=== PATIENT | male | born 1970 | race Caucasian/White ===

== ENCOUNTER 2016-10-22 15:31 | Emergency (ER) | payer OTHER ==
[2016-10-22] MEDS ORDERED: NITROGLYCERIN SL 0.4 MG TABLET SL STA (16:21)
[2016-10-22] MEDS ORDERED: KETOROLAC 60 MG/2 ML VIAL IVP STA (16:23)
[2016-10-22] MEDS ORDERED: NITROGLYCERIN SL 0.4 MG TABLET SL ONE (16:24)
[2016-10-22] MEDS ORDERED: KETOROLAC 30 MG/ML VIAL ONE (16:28)
== END 2016-10-22 17:45 | disposition home or self-care (01) ==
DX: G44.89 Other headache syndrome (principal); R07.2 Precordial pain; I51.9 Heart disease, unspecified

== ENCOUNTER 2022-05-02 15:13 | Outpatient (CLI) | payer OTHER | END 2022-05-02 15:14 | disposition critical access hospital (66) | LOC: EMS 15:13 | DX: R56.9 Unspecified convulsions (principal) | CPT/HCPCS: A0425; A0429 ==

== ENCOUNTER 2022-05-02 15:34 | Emergency (ER) | payer OTHER ==
[2022-05-02] MEDS ORDERED: MORPHINE 2 MG/ML CARPUJECT IVP STA ×2 (15:39→22:50)
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
[2022-05-02 15:50] LABS: BASOPHILS % (AUTO) 0.5 %; EOSINOPHILS # (AUTO) 0.1 10^3/uL (0.0-0.7); EOSINOPHILS % (AUTO) 2.4 %; HCT - HEMATOCRIT 46.4 % (42.0-52.0); LYMPHOCYTES # (AUTO) 1.2 10^3/uL (1.5-3.5); LYMPHOCYTES % (AUTO) 21.3 %; MEAN CORPUSCULAR HEMOGLOBIN 30.1 pg (27.0-31.0); MEAN CORPUSCULAR HGB CONC 34.5 g/dL (32.0-36.0); MEAN CORPUSCULAR VOLUME 87.4 fL (80.0-94.0); MEAN PLATELET VOLUME 9.4 fL (7.4-11.4); MONOCYTES # (AUTO) 0.7 10^3/uL (0.0-1.0); MONOCYTES % (AUTO) 11.3 %; NEUTROPHILS # (AUTO) 3.7 10^3/uL (1.5-6.6); PLT - PLATELET COUNT 196 10^3/uL (130-450); RED BLOOD COUNT 5.31 10^6/uL (4.70-6.10); RED CELL DISTRIBUTION WIDTH 15.2 % (12.0-15.0); WHITE BLOOD COUNT 5.7 x10^3/uL (4.8-10.8)
--- OUTSIDE RECORDS SUMMARY | 2022-05-02 15:57 | EXTERNAL MEDICAL SUMMARY RPT | Continuity of Care Document ---
:1970 Author Organization [facility] Address [address] [place] [address] Phone Allergies and Intolerances date description facility type (no date) NO KNOWN ALLERGIES CORHIO (unknown) Encounters No information. Functional Status No information. Immunizations No information. Medications No information. Problems No information. Procedures No information. Results/Labs No information. Social History No information. Vital Signs No information.
[2022-05-02 16:02] LABS: ALBUMIN 4.5 g/dL (3.2-5.5); ALBUMIN/GLOBULIN RATIO 1.3 (1.0-2.2); BILIRUBIN,TOTAL 0.7 mg/dL (0.2-1.0); CALCIUM 9.9 mg/dL (8.5-10.3); POTASSIUM 4.3 mmol/L (3.5-5.0); TOTAL PROTEIN 7.9 g/dL (6.7-8.2)
--- NOTE | 2022-05-02 16:17 | CT Report ---
PROCEDURE: HEAD WO INDICATIONS: headache, seizure TECHNIQUE: Noncontrast 4.5 mm thick angled axial sections acquired from the foramen magnum to the vertex. For r adiation dose reduction, the following was used: automated exposure control, adjustment of mA and/or kV according to patient size. COMPARISON: None. FINDINGS: Image quality: Excellent. CSF spaces: Basal cisterns are patent. No extra-axial fluid collections. Ventricles are normal in size and shape. Brain: No midline shift. No intracranial masses or hemorrhage. Lang-white matter interface is norm al. Skull and face: Calvarium and visualized facial bones are intact, without suspicious lesions. Sinuses: Visualized sinuses and mastoids are clear. IMPRESSION: 1. No acute intracranial process. Reviewed by: Vaishnavi Fleming MD on 05/02/2022 4:16 PM PDT Approved by: Vaishnavi Fleming MD on 05/02/2022 4:16 PM PDT Station ID: [id number]
[2022-05-02] MEDS ORDERED: SODIUM CHLORIDE 0.9% 1,000 ML IV STA (16:53)
[2022-05-02] MEDS ORDERED: KETOROLAC 15 MG/ML VIAL IVP STA (16:53)
--- NOTE | 2022-05-02 17:45 | CT Report ---
PROCEDURE: THORACIC SPINE WO INDICATIONS: back injury TECHNIQUE: Noncontrast 3 mm thick sections acquired through the region of interest in the thoracic spine. Sagit leland and coronal reformats were then constructed. For radiation dose reduction, the following was used : automated exposure control, adjustment of mA and/or kV according to patient size. COMPARISON: None. FINDINGS: Image quality: Excellent. Bones: Postsurgical changes are seen from posterior fixation of the upper thoracic spine extending f rom T2 through T6. There is anterior wedging deformity of the T4 vertebral body with moderate loss of vertebral body height and a small displaced anterior osseous fragment. These are most likely chronic . There is also mild fracture deformity of the anterior aspect of the T3 and T5 vertebral bodies. There is a minimally displaced fracture of the manubrium. Chronic healed fractures of the posterior t hird ribs bilaterally and likely the posterior right fourth rib. The medial portions of the scapulas are intact bilaterally. Central spinal canal is of normal overall caliber. Soft tissues: No paravertebral masses or hematomas. Mild dependent atelectasis in the lung bases. S mall hiatal hernia. IMPRESSION: 1.Postoperative changes from posterior fixation and T2-T6, presumably for fixation of prior T3-T5 katie tebral body fractures. Recommend correlation with any available prior studies to exclude the possibil ity of a superimposed new vertebral body injury. Metallic hardware is intact. The remainder of the th oracic spine is intact. 2.Chronic healed fractures of the posterior third ribs bilaterally and likely the right posterior fou rth rib. No acute rib fracture identified. 3.Mild chronic appearing fracture deformity of the manubrium. Reviewed by: Michael Calero MD on 05/02/2022 4:43 PM NELIDA Approved by: Michael Calero MD on 05/02/2022 4:43 PM AKNEO Station ID: [id number]
[2022-05-02] MEDS ORDERED: levETIRAcetam INJ 1,000 MG in SODIUM CHLORIDE 0.9% 100ML 100 ML IV STA (17:50)
[2022-05-02] MEDS ORDERED: LORazepam 2 MG/ML VIAL IVP STA ×2 (17:50→20:04)
[2022-05-02] MEDS ORDERED: LORazepam 2 MG/ML VIAL ONE ×2 (18:00→20:54)
--- NOTE | 2022-05-02 19:15 | CT Report ---
PROCEDURE: CT angiogram brain with contrast INDICATIONS: headache sz CONTRAST: IV CONTRAST: Optiray 320 ml: 100 PO CONTRAST: *NO PO CONTRAST TECHNIQUE: After the administration of intravenous contrast, 1 mm thick sections acquired through the [place] of [place]. Postcontrast 4.5 mm thick sections then re-acquired from the foramen magnum to the vertex. For radiation dose reduction, the following was used: automated exposure control, adjustment of mA and/or kV according to patient size. COMPARISON: None FINDINGS: Image quality: Excellent. Anterior circulation: Intracranial internal carotid arteries are normal in size and flow. The flow within the paired anterior cerebral arteries is normal and symmetric. The flow within the middle cer ebral arteries is normal and symmetric. The anterior communicating artery is seen. No aneurysms are seen. Posterior circulation: Visualized portions of the vertebral arteries demonstrate normal caliber, and join to form a normal appearing basilar artery. Flow within the posterior cerebral arteries is norm al and symmetric. No aneurysms are seen. Distal right artery stenosis and noted CSF spaces: Ventricles are normal in size and shape. Basal cisterns are patent. No extra-axial flu id collections. Brain: No midline shift. No intracranial bleeds or masses. Lang-white matter interface appears int act. Skull and face: Calvarium and facial bones appear intact, without suspicious lesions. Sinuses: Visualized sinuses and mastoids are clear. IMPRESSION: Distal right vertebral artery stenosis. Otherwise unremarkable cranial CTA without large vessel occlu shyla, aneurysm or vascular malformation Reviewed by: Cash Carrasco MD on 05/02/2022 6:13 PM NELIDA Approved by: Cash Carrasco MD on 05/02/2022 6:13 PM AKDT Station ID: [id number]
--- NOTE | 2022-05-02 19:17 | CT Report ---
PROCEDURE: CT angiogram neck with contrast INDICATIONS: headache sz CONTRAST: IV CONTRAST: Optiray 320 ml: 100 PO CONTRAST: *NO PO CONTRAST TECHNIQUE: After the administration of intravenous contrast, 1.5 mm axial sections acquired from the aortic arch to the [place] of [place]io. Coronal 3-D maximum intensity projection (MIP) and/or volume rendering ref ormats were then performed. For radiation dose reduction, the following was used: automated exposur e control, adjustment of mA and/or kV according to patient size. COMPARISON: None. FINDINGS: Image quality: Upper thoracic spine posterior maty and screw instrumentation limits assessment of the left common carotid origin and origins of the vertebral arteries Carotid system: The great vessels demonstrate a conventional anatomy as they arise from the aortic a rch. The origins of the common carotid arteries appear patent. The common carotid arteries demonstr ate normal calibers and courses. The bifurcation regions appear normal bilaterally. The internal ca rotid arteries demonstrate normal caliber and course. Posterior circulation: The origins of the vertebral arteries appear patent. The more superior porti ons of the vertebral arteries demonstrate normal course and caliber. They join to form a normal appe aring basilar artery. Soft tissues: Visualized neck soft tissues demonstrate no suspicious abnormalities. The thyroid is normal in size and there are no incidental findings. Bones: No suspicious bony lesions. Visualized cervical spine appears normally aligned. IMPRESSION: Trace atherosclerotic plaque noted in both proximal internal carotid arteries without stenosis. The estimate of stenosis included in the report of the imaging study was calculated using the NASCET method Reviewed by: Cash Carrasco MD on 05/02/2022 6:15 PM NELIDA Approved by: Cash Carrasco MD on 05/02/2022 6:15 PM AKNEO Station ID: [id number]
--- NOTE | 2022-05-02 19:31 | CT Report ---
PROCEDURE: Abdomen/Pelvis W INDICATIONS: chest/abd pain CONTRAST: IV CONTRAST: Optiray 320 ml: 100 PO CONTRAST: *NO PO CONTRAST TECHNIQUE: After the administration of weight appropriate dose of intravenous contrast, 5 mm thick sections acqu ired from the diaphragms to the symphysis. 5 mm thick coronal and sagittal reformats were acquired. For radiation dose reduction, the following was used: automated exposure control, adjustment of mA and/or kV according to patient size. COMPARISON: None. FINDINGS: Image quality: Excellent. ABDOMEN: Lung bases: Bibasilar atelectasis. Heart size is normal. Moderate hiatal hernia. Solid organs: Liver and spleen are normal in size and enhancement. No evidence for acute traumatic i njury. Gallbladder is unremarkable. Biliary system is non dilated. Pancreas enhances normally. Homo geneous pancreatic enhancement. No peripancreatic inflammation. No adrenal nodules. Kidneys demonstr ate normal size and enhancement, without hydronephrosis. No evidence for acute traumatic injury. Peritoneum and bowel: Bowel loops demonstrate normal wall thickness and caliber. No free fluid or a ir. Nodes and vessels: No retroperitoneal or mesenteric adenopathy by size criteria. Aorta and inferior vena cava are normal in size. Scattered atherosclerotic calcifications. Miscellaneous: Small fat-containing umbilical hernia without acute inflammation. PELVIS: Genitourinary: Bladder wall thickness is normal. Miscellaneous: No inguinal hernias or adenopathy. Bones: No suspicious bony lesions. No acute vertebral body compression fractures. IMPRESSION: CT abdomen and pelvis without acute abnormalities or acute traumatic injury to the solid or hollow organs. No acute fractures seen. Moderate size hiatal hernia. Atherosclerosis. Reviewed by: Osmar Lala MD on 05/02/2022 7:29 PM PDT Approved by: Osmar Lala MD on 05/02/2022 7:29 PM PDT Station ID: [id number]
--- NOTE | 2022-05-02 19:38 | CT Report ---
PROCEDURE: CHEST W INDICATIONS: chest pain CONTRAST: IV CONTRAST: Optiray 320 ml: 100 PO CONTRAST: *NO PO CONTRAST TECHNIQUE: After the administration of intravenous contrast, 1 mm axial images were acquired from the pulmonary apices through the posterior costophrenic angles. Axial 5 mm soft tissue kernel reconstructions were performed as well as 8 mm axial MIP and coronal and sagittal 5 mm reformations. For radiation dose reduction, the following was used: automated exposure control, adjustment of mA and/or kV according to patient size. COMPARISON: None. FINDINGS: Image quality: Diagnostic. Lungs and pleura: No acute air space opacities. Bibasilar atelectasis. No pleural effusions or pneu mothorax. Central and peripheral airways are patent and normal in caliber. Mediastinum: Heart size is normal. No pericardial effusion. No mediastinal or hilar adenopathy by size criteria. Thoracic aorta and central pulmonary arteries are normal in size. Esophagus is emma l in caliber. Moderate-sized hiatal hernia. Bones and chest wall: Status post posterior thoracic spinal fusion from T2 through T6 with normal bon y alignment. However, there is an acute appearing anterior, superior endplate compression fracture in volving the T4 vertebral body with anterior displacement of the fracture fragments and associated mil d paravertebral soft tissue edema. No other acute fractures seen. No axillary or supraclavicular michelle opathy by size criteria. Thyroid gland is unremarkable.. Abdomen: Visualized upper abdominal solid organs appear normal. Upper abdominal bowel loops are nor mal in caliber. IMPRESSION: Status post posterior spinal fusion of T2-T6 with relative acute appearing anterior, superior henrique shyla fracture of the T4 vertebral body. The anterior fracture fragments of the anterior superior endp late are displaced anteriorly. There is mild paravertebral soft tissue edema which may be accentuated by combination of streak artifact from adjacent fusion hardware and motion artifact. Moderate size hiatal hernia. Findings were discussed with Dr. Espinosa at 1935 hours. There is question regarding the acuity of the T4 vertebral fracture given relatively recent history of spinal fusion secondary to thoracic spinal t rauma at this site a few months prior. CLINICAL RECOMMENDATION STATEMENTS: In patients <35 years with an ITN detected on CT, MRI, or extrathyroidal ultrasound, the Committee re commends further evaluation with dedicated thyroid ultrasound if the nodule is "e1 cm and has no susp icious imaging features, and if the patient has normal life expectancy. In patients "e35 years with an ITN detected on CT, MRI, or extrathyroidal ultrasound, the Committee r ecommends further evaluation with dedicated thyroid ultrasound if the nodule is "e1.5 cm and has no s uspicious imaging features, and if the patient has normal life expectancy. (ACR, 2014) Reviewed by: Osmar Lala MD on 05/02/2022 7:37 PM PDT Approved by: Osmar Lala MD on 05/02/2022 7:37 PM PDT Station ID: [id number]
[2022-05-02] MEDS ORDERED: ASPIRIN CHEW 81 MG TABLET PO STA (19:41)
[2022-05-02 20:59] LABS: B. PARAPERTUSSIS- RESP PCR PAN NOT DETECTED; B. PERTUSSIS- RESP PCR PANEL NOT DETECTED; C. PNEUMONIAE- RESP PCR PANEL NOT DETECTED; CORONAVIRUS 229E-RESP PCR NOT DETECTED; CORONAVIRUS HKU1-RESP PCR NOT DETECTED; CORONAVIRUS NL63-RESP PCR NOT DETECTED; CORONAVIRUS OC43-RESP PCR NOT DETECTED; HUMAN METAPNEUMOVIRUS NOT DETECTED; INFLUENZA A- RESP PCR PANEL NOT DETECTED; INFLUENZA B - RESP PCR PANEL NOT DETECTED; M. PNEUMONIAE- RESP PCR PANEL NOT DETECTED; PARAINFLUENZA VIRUS 1 NOT DETECTED; PARAINFLUENZA VIRUS 2 NOT DETECTED; PARAINFLUENZA VIRUS 3 NOT DETECTED; PARAINFLUENZA VIRUS 4 NOT DETECTED; RHINOVIRUS/ENTEROVIRUS NOT DETECTED; RSV- RESP PCR PANEL NOT DETECTED; SARS-CoV-2 -RESP PCR PANEL NOT DETECTED
[2022-05-03 05:22] LABS: BASOPHILS % (AUTO) 0.3 %; EOSINOPHILS # (AUTO) 0.1 10^3/uL (0.0-0.7); EOSINOPHILS % (AUTO) 2.1 %; HCT - HEMATOCRIT 44.1 % (42.0-52.0); HGB - HEMOGLOBIN 15.1 g/dL (14.0-18.0); LYMPHOCYTES # (AUTO) 1.7 10^3/uL (1.5-3.5); LYMPHOCYTES % (AUTO) 25.2 %; MEAN CORPUSCULAR HEMOGLOBIN 29.9 pg (27.0-31.0); MEAN CORPUSCULAR HGB CONC 34.2 g/dL (32.0-36.0); MEAN CORPUSCULAR VOLUME 87.3 fL (80.0-94.0); MEAN PLATELET VOLUME 9.4 fL (7.4-11.4); MONOCYTES % (AUTO) 14.9 %; NEUTROPHILS # (AUTO) 3.8 10^3/uL (1.5-6.6); NEUTROPHILS % (AUTO) 57.2 %; PLT - PLATELET COUNT 181 10^3/uL (130-450); RED BLOOD COUNT 5.05 10^6/uL (4.70-6.10); RED CELL DISTRIBUTION WIDTH 15.4 % (12.0-15.0); WHITE BLOOD COUNT 6.6 x10^3/uL (4.8-10.8)
[2022-05-03 05:30] LABS: CALCIUM 9.6 mg/dL (8.5-10.3); CREATININE 0.9 mg/dL (0.6-1.2); POTASSIUM 4.1 mmol/L (3.5-5.0)
[2022-05-03] MEDS ORDERED: KETOROLAC 15 MG/ML VIAL IVP STA (09:43)
[2022-05-03] MEDS ORDERED: HYDROmorphone 0.5 MG/0.5 ML SYRINGE IVP STA (09:43)
--- NOTE | 2022-05-03 09:48 | ED Physician Documentation ---
ED Addendum - Addendum Addendum: 05/03/22 09:46The patient is awake and conversant. He was starting to have a bit of a headache just a little bit ago. These at times have preceded the seizure in the last day. He would get headaches occasionally in the past. At this point it seemed mild and we can give him some Toradol and pain medicine. In addition the nursing staff did check the patient over that there were no unusual pressure areas, his genitalia were not impinged and his catheter is free-flowing. His extremities seem and rested comfortable position. No obvious stimulus in that regard. We can give some dose of Keppra as well that was just started yesterday and I presume would be continued at 500 mg twice daily. We had not heard any news on transfers from to other facilities as yet this morning but hopefully there will be discharges and other facilities. We can also reassess through the day if no transfers are available, what the goal might be for outpatient treatment. 05/03/22 09:47
[2022-05-03] MEDS ORDERED: levETIRAcetam INJ 500 MG in SODIUM CHLORIDE 0.9% 100ML 100 ML IV SCH (10:00)
[2022-05-03] MEDS ORDERED: ACETAMINOPHEN 325 MG TABLET PO STA (16:57)
[2022-05-03 18:45] LABS: BILIRUBIN,URINE NEGATIVE (NEGATIVE); GLUCOSE, URINE (UA) NEGATIVE (NEGATIVE); KETONES,URINE (UA) NEGATIVE (NEGATIVE); LEUKOCYTE ESTERASE, URINE TRACE (NEGATIVE); NITRITE,URINE NEGATIVE (NEGATIVE); OCCULT BLOOD,URINE SMALL (NEGATIVE); PROTEIN,URINE NEGATIVE (NEGATIVE); UROBILINOGEN,URINE 0.2 (NORMAL) E.U./dL (NORMAL)
[2022-05-03 18:49] LABS: CLARITY,URINE HAZY (CLEAR)
[2022-05-03 19:00] LABS: BACTERIA,URINE Moderate /HPF (None Seen); RBC,URINE 0-5 /HPF (0-5); SQUAMOUS EPITHELIAL CELL,UR NONE SEEN (<= Few)
[2022-05-03] MEDS ORDERED: NITROFURANTOIN MACRO 100 MG CAPSULE PO SCH (21:00)
[2022-05-03] MEDS ORDERED: levETIRAcetam 250 MG TABLET PO SCH (21:00)
--- NOTE | 2022-05-04 00:07 | ED Physician Documentation ---
ED Addendum - Addendum Addendum: 05/04/22 00:05 Asked to discuss case with the neurologist at [facility] in [place]. She states as he has not had any further seizures in 24 hours that he would not need admission for the seizures as he needs an outpatient EEG which at this point would not change their management which would be to continue the Keppra 500 mg twice daily. Transfer center will reach out to bonded strand operator to discuss abnormal troponins and transfer for cardiology evaluation. 05/04/22 00:[address] Rosen, bonded strand operator at [facility] in [place].He agrees to see the patient in transfer and feels that it is reasonable that we have not started heparin at this time As the troponin is now downtrending and he has not had further episodes of pain. Request that we speak to the hospitalist service for admission. Transfer center to page the hospitalist. 05/04/22 01:[address] Espinoza, hospitalist at [facility] who agrees to accept the patient in transfer.
[2022-05-04 02:55] VITALS: BP 141/96
== END 2022-05-04 02:55 | disposition short-term general hospital (02) ==
LOC: EDUNIT# → ED 15:34
DX: G40.901 Epilepsy, unspecified, not intractable, with status epilepticus (principal); R77.8 Other specified abnormalities of plasma proteins
CPT/HCPCS: 36415; 51702; 70450; 70496; 70498; 71260; 72128; 74177; 80048; 80053; 81001; 84146; 84484; 85025; 87077; 87086; 87181; 87633; 93005; 96361; 96365; 96366; 96375; 96376; 99285; 99291; A9270; J1170; J2060; Q9967; 81003

== ENCOUNTER 2024-02-15 08:00 | Outpatient (CLI) | payer MEDICAID, OTHER ==
[2024-02-15 18:44] LABS: BILIRUBIN,URINE NEGATIVE (NEGATIVE); GLUCOSE, URINE (UA) NEGATIVE (NEGATIVE); KETONES,URINE (UA) TRACE mg/dL (NEGATIVE); LEUKOCYTE ESTERASE, URINE TRACE (NEGATIVE); NITRITE,URINE NEGATIVE (NEGATIVE); OCCULT BLOOD,URINE NEGATIVE (NEGATIVE); PH,URINE 6.5 PH (5.0-7.5); PROTEIN,URINE NEGATIVE (NEGATIVE); UROBILINOGEN,URINE 0.2 (NORMAL) E.U./dL (NORMAL)
[2024-02-15 19:02] LABS: FECAL OCCULT BLOOD (FIT) POSITIVE (NEGATIVE)
[2024-02-15 19:08] LABS: BACTERIA,URINE None Seen /HPF (None Seen); CLARITY,URINE HAZY (CLEAR); RBC,URINE 0-5 /HPF (0-5); SQUAMOUS EPITHELIAL CELL,UR NONE SEEN (<= Few); WBC,URINE 0-3 /HPF (0-3)
== END 2024-02-15 23:59 | disposition home or self-care (01) ==
LOC: LAB.WCP 08:00
PROVIDERS: ATTEND Internal Medicine
DX: Z12.11 Encounter for screening for malignant neoplasm of colon (principal); Z87.440 Personal history of urinary (tract) infections
CPT/HCPCS: 81001; 82274; 87086